=== PATIENT | female | born 1955 | race Caucasian/White ===

== ENCOUNTER 2018-01-04 05:58 | Emergency (ER) | payer BC ==
[2018-01-04] MEDS ORDERED: Ketorolac 30 MG/ML SDV IVPUSH ONE (06:01)
[2018-01-04] MEDS ORDERED: Ondansetron 4 MG/2 ML SDV IVPUSH ONE (06:01)
[2018-01-04] MEDS ORDERED: Sodium Chloride 0.9% 1,000 ML IV ONE (06:01)
--- NOTE | 2018-01-04 06:03 | EDM.PDOC ---
ED HPI GENERAL MEDICAL PROBLEM - General Chief Complaint: Genitourinary Problem Stated Complaint: LOWER LEFT BACK PAIN Time Seen by Provider: 01/04/18 06:01 Source of Information: Reports: Patient - History of Present Illness INITIAL COMMENTS - FREE TEXT/NARRATIVE: HISTORY AND PHYSICAL: History of present illness: [Patient presents by private vehicle Patient awoke this morning at 5 AM upon rising from bed she developed 7 out of 10 left flank pain similar to previous ureteral stone type pain she did have some nausea no vomiting no fever chills sweats No chest pain shortness breath headache dizziness or palpitation no bowel or urine symptoms At approximately 6:15 patient is pain-free 0 out of 10 ] Review of systems: As per history of present illness and below otherwise all systems reviewed and negative. Past medical history: As per history of present illness and as reviewed below otherwise noncontributory. Surgical history: As per history of present illness and as reviewed below otherwise noncontributory. Social history: No reported history of drug or alcohol abuse. Family history: As per history of present illness and as reviewed below otherwise noncontributory. Physical exam: HEENT: Atraumatic, normocephalic, pupils reactive, negative for conjunctival pallor or scleral icterus, mucous membranes moist, throat clear, neck supple, nontender, trachea midline. Lungs: Clear to auscultation, breath sounds equal bilaterally, chest nontender. Heart: S1S2, regular, negative for clicks, rubs, or JVD. Abdomen: Soft, nondistended, nontender. Negative for masses or hepatosplenomegaly. Negative for costovertebral tenderness. Pelvis: Stable nontender. Genitourinary: Deferred. Rectal: Deferred. Extremities: Atraumatic, negative for cords or calf pain. Neurovascular unremarkable. Neuro: Awake, alert, oriented. Cranial nerves II through XII unremarkable. Cerebellum unremarkable. Motor and sensory unremarkable throughout. Exam nonfocal. Diagnostics: [CBC CMP UA urine culture blood culture ][employer]: [Toradol 30 mg IV Zofran 8 mg IV Normal saline bolus 1 L ]Above medication ordered but held as patient is asymptomatic at current Bactrim double strength by mouth twice a day #20 no refill Impression: [Left flank pain-resolved UTI Definitive disposition and diagnosis as appropriate pending reevaluation and review of above. right lower back Pain Score (Numeric/FACES): 7 - Related Data Allergies Allergy/AdvReac Type Severity Reaction Status Date / Time No Known Allergies Allergy Verified 01/04/18 06:24 Home Meds: Home Meds Ascorbic Acid/Bioflavonoids [Vit C-Bioflavonoids SA] 1 tab PO DAILY 02/09/16 [ History] Calcium Carbonate/Vitamin D3 [Calcium 600 + Vit D 400 Tablet] 1 tab PO DAILY 04/20 [History] Echinacea 1 tab PO DAILY 02/09/16 [History] Fish Oil/[place]-3 Fatty Acids [Fish Oil 1,000 MG] 1 cap PO DAILY 02/09/16 [ History] L.acidoph,Paracasei, B.lactis [Probiotic] 1 cap PO DAILY 02/09/16 [History] Multivitamin [Multivitamins] 1 cap PO DAILY 02/09/16 [History] Vit D3 & K/Berberine HCl/Hops [Ostera] 1 cap PO DAILY 02/09/16 [History] Past Medical History HEENT History: Reports: Allergic Rhinitis Cardiovascular History: Reports: None Respiratory History: Reports: None Gastrointestinal History: Reports: None Genitourinary History: Reports: Renal Calculus 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 Musculoskeletal History: Reports: Fracture Other Musculoskeletal History: ankle Neurological History: Reports: None Psychiatric History: Reports: None Endocrine/Metabolic History: Reports: None Hematologic History: Reports: None Immunologic History: Reports: None Oncologic (Cancer) History: Reports: None Dermatologic History: Reports: None - Past Surgical History Female Surgical History: Reports: Section, D&C, Tubal Ligation Social & Family History - Tobacco Use Smoking Status *Q: Never Smoker - Recreational Drug Use Recreational Drug Use: No ED ROS GENERAL - Review of Systems Review Of Systems: ROS reveals no pertinent complaints other than HPI. ED EXAM, GENERAL - Physical Exam Exam: See Below Course - Vital Signs Last Recorded V/S: Last Vital Signs Temp 97.7 F 01/04/18 06:10 Pulse 70 01/04/18 06:10 Resp 16 01/04/18 06:10 BP 175/78 H 01/04/18 06:10 Pulse Ox 98 01/04/18 06:10 - Orders/Labs/Meds Orders: Active Orders 24 hr Category Date Time Status KUB [Abdomen 1V Flat] [CR] Stat Exams 01/04/18 06:19 Taken COMPREHENSIVE METABOLIC PN,CMP [CHEM] Stat Lab 01/04/18 06:20 Received CULTURE BLOOD [BC] Stat Lab 01/04/18 06:20 Received CULTURE BLOOD [BC] Stat Lab 01/04/18 06:26 Received CULTURE URINE [RM] Stat Lab 01/04/18 06:31 Ordered Sodium Chloride 0.9% [Normal Saline] 1,000 ml Med 01/04/18 06:01 Active IV STAT Blood Culture x2 Reflex Set [OM.PC] Stat Oth 01/04/18 06:00 Ordered Medication Orders Sodium Chloride (Normal Saline) 1,000 mls @ 999 mls/hr IV STAT ONE Stop: 01/04/18 07:01 Labs: Laboratory Tests 01/04/18 01/04/18 Range/Units 06:00 06:20 WBC 4.00 (4.0-11.0) K/uL RBC 4.45 (4.30-5.90) M/uL Hgb 13.8 (12.0-16.0) g/dL Hct 40.0 (36.0-46.0) % MCV 89.9 (80.0-98.0) fL MCH 31.0 (27.0-32.0) pg MCHC 34.5 (31.0-37.0) g/dL RDW Std Deviation 44.4 (28.0-62.0) fl RDW Coeff of Mary 14 (11.0-15.0) % Plt Count 240 (150-400) K/uL MPV 11.00 (7.40-12.00) fL Neut % (Auto) 43.9 L (48.0-80.0) % Lymph % (Auto) 39.3 (16.0-40.0) % Ada % (Auto) 12.8 (0.0-15.0) % Eos % (Auto) 2.5 (0.0-7.0) % Baso % (Auto) 1.5 (0.0-1.5) % Neut # (Auto) 1.8 (1.4-5.7) K/uL Lymph # (Auto) 1.6 (0.6-2.4) K/uL Ada # (Auto) 0.5 (0.0-0.8) K/uL Eos # (Auto) 0.1 (0.0-0.7) K/uL Baso # (Auto) 0.1 (0.0-0.1) K/uL Nucleated RBC % 0.0 /100WBC Nucleated RBCs # 0 K/uL Urine Color YELLOW Urine Appearance HAZY Urine pH 5.5 (5.0-8.0) Ur Specific [place] >= 1.030 (1.001-1.035) Urine Protein TRACE (NEGATIVE) mg/dL Urine Glucose (UA) NEGATIVE (NEGATIVE) mg/dL Urine Ketones NEGATIVE (NEGATIVE) mg/dL Urine Occult Blood LARGE H (NEGATIVE) Urine Nitrite NEGATIVE (NEGATIVE) Urine Bilirubin NEGATIVE (NEGATIVE) Urine Urobilinogen 0.2 (<2.0) EU/dL Ur Leukocyte Esterase SMALL (NEGATIVE) Urine RBC 45-50 (0-2/HPF) Urine WBC 5-7 (0-5/HPF) Ur Epithelial Cells FEW (NONE-FEW) Urine Bacteria FEW (NEGATIVE) Urinalysis Comment Meds: Medications Generic Name Dose Route Start Last Admin Trade Name Freq PRN Reason Stop Dose Admin Sodium Chloride 1,000 mls @ 999 mls/hr 01/04/18 06:01 Normal Saline IV 01/04/18 07:01 STAT ONE Discontinued Medications Generic Name Dose Route Start Last Admin Trade Name Freq PRN Reason Stop Dose Admin Ketorolac Tromethamine 30 mg 01/04/18 06:01 Toradol IVPUSH 01/04/18 06:02 ONETIME ONE Ondansetron HCl 8 mg 01/04/18 06:01 Zofran IVPUSH 01/04/18 06:02 ONETIME ONE Departure - Departure Time of Disposition: 06:52 Disposition: Home, Self-Care 01 Condition: Good Clinical Impression: UTI, Urinary tract infectious disease - Discharge Information Referrals: PCP,None [Primary Care Provider] - Forms: ED Department Discharge Additional Instructions: The following information is given to patients seen in the emergency department who are being discharged to home. This information is to outline your options for follow-up care. We provide all patients seen in our emergency department with a follow-up referral. The need for follow-up, as well as the timing and circumstances, are variable depending upon the specifics of your emergency department visit. If you don't have a primary care physician on staff, we will provide you with a referral. We always advise you to contact your personal physician following an emergency department visit to inform them of the circumstance of the visit and for follow-up with them and/or the need for any referrals to a consulting specialist. The emergency department will also refer you to a specialist when appropriate. This referral assures that you have the opportunity for follow-up care with a specialist. All of these measure are taken in an effort to provide you with optimal care, which includes your follow-up. Under all circumstances we always encourage you to contact your private physician who remains a resource for coordinating your care. When calling for follow-up care, please make the office aware that this follow-up is from your recent emergency room visit. If for any reason you are refused follow-up, please contact the [facility] emergency department at and asked to speak to the emergency department charge nurse. - My Orders Last 24 Hours: My Active Orders 01/04/18 06:00 Blood Culture x2 Reflex Set [OM.PC] Stat 01/04/18 06:01 Sodium Chloride 0.9% [Normal Saline] 1,000 ml IV STAT 01/04/18 06:19 KUB [Abdomen 1V Flat] [CR] Stat 01/04/18 06:20 COMPREHENSIVE METABOLIC PN,CMP [CHEM] Stat CULTURE BLOOD [BC] Stat 01/04/18 06:26 CULTURE BLOOD [BC] Stat 01/04/18 06:31 CULTURE URINE [RM] Stat - Assessment/Plan Last 24 Hours: My Active Orders 01/04/18 06:00 Blood Culture x2 Reflex Set [OM.PC] Stat 01/04/18 06:01 Sodium Chloride 0.9% [Normal Saline] 1,000 ml IV STAT 01/04/18 06:19 KUB [Abdomen 1V Flat] [CR] Stat 01/04/18 06:20 COMPREHENSIVE METABOLIC PN,CMP [CHEM] Stat CULTURE BLOOD [BC] Stat 01/04/18 06:26 CULTURE BLOOD [BC] Stat 01/04/18 06:31 CULTURE URINE [RM] Stat
[2018-01-04 06:54] LABS: CHLORIDE,CL 108 mmol/L (98-107); SODIUM,NA 140 mmol/L (136-145)
[2018-01-04 07:45] VITALS: BP 151/79
--- NOTE | 2018-01-04 15:17 | CR ---
EXAM DATE: 01/04/18 PATIENT'S AGE: 62 Patient: MELANY ECHEVARRIA Facility: [place], [place] Site . Site : [id number] Study: XRay Abdomen/Pelvis [id number]/2/2018 6:40:13 AM Ordering Physician: Chip Singletary Final Report: Indication: Left flank pain. History of kidney stones. Technique: KUB 1 view Comparison: 08/14/2010 Findings/Impression: Soft tissues: Multiple pelvic calcifications are not significantly changed from the prior exam and likely represent phleboliths. No other suspicious calcification to suggest kidney or ureteral stone. Other: No other acute or significant findings. Stable lumbar spine scoliosis. Dictated by James Rose MD @ 01/04/2018 6:49:26 AM Dictated by: James Rose MD @ 01/04/2018 06:49:34 (Electronic Signature) Report Signed by Proxy. [email or web address]
== END 2018-01-04 07:39 | disposition home or self-care (01) ==
LOC: MW.ED 05:58
DX: N39.0 Urinary tract infection, site not specified (principal)
CPT/HCPCS: 36415; 74018; 74018-26; 80053; 81001; 85025; 87040; 87086; 99283